=== PATIENT | male | born 1990 | race Caucasian/White ===

== ENCOUNTER 2018-09-28 10:52 | Emergency (ER) | payer OTHER ==
--- NOTE | 2018-09-28 11:59 | UC ---
Throat Pain/Nasal Alex HPI - HPI Summary HPI Summary: 28 y/o male presents to the urgent care c/o sore throat, white tongue the past 3 days. He states Hx of oral thrush about 7 years ago. He has mild dry cough. Pain w/ swallowing is mild now 4/10, but he recently took Ibuprofen PO which seems to improve his symptoms. Pt denies fever, PRASAD, URI, SOB, chest pain, abdominal pain, N/V/D. - History of Current Complaint Chief Complaint: UCGeneralIllness Stated Complaint: SORE THROAT SORES IN MOUTH Time Seen by Provider: 09/28/18 11:57 Hx Obtained From: Patient Onset/Duration: Gradual Onset, Still Present Severity: Moderate Pain Intensity: 4 Pain Scale Used: 0-10 Numeric Cough: None Associated Signs & Symptoms: Positive: Dysphagia. Negative: Fever - Epiglottits Risk Factors Epiglottis Risk Factors: Negative - Allergies/Home Medications Allergies/Adverse Reactions: Allergies Allergy/AdvReac Type Severity Reaction Status Date / Time No Known Allergies Allergy Verified 09/28/18 11:18 Home Medications: Home Medications Venlafaxine EXT RELEASE CAP* [Effexor Xr CAP*] 75 mg PO DAILY 09/28/18 [History Confirmed 09/28/18] PMH/Surg Hx/FS Hx/Imm Hx Previously Healthy: Yes - Pt denies PMHX - Surgical History Surgical History: None - Family History Known Family History: Positive: None - Pt denies FMHX - Social History Occupation: Employed Full-time Lives: With Family Alcohol Use: Occasionally Substance Use Type: Marijuana Smoking Status (MU): Never Smoked Tobacco Review of Systems All Other Systems Reviewed And Are Negative: Yes Constitutional: Positive: Negative Skin: Positive: Negative Eyes: Positive: Negative ENT: Positive: Sore Throat, Other - white tongue and one mouth ulcer Respiratory: Positive: Negative Cardiovascular: Positive: Negative Gastrointestinal: Positive: Negative Genitourinary: Positive: Negative Motor: Positive: Negative Neurovascular: Positive: Negative Musculoskeletal: Positive: Negative Neurological: Positive: Negative Psychological: Positive: Negative Is Patient Immunocompromised?: No Physical Exam - Summary Physical Exam Summary: VITAL SIGNS: Reviewed. GENERAL: Patient is a well developed and nourished male who is sitting comfortable in the examining table. Patient is not in any acute respiratory distress. HEAD AND FACE: No signs of trauma. No ecchymosis, hematomas or skull depressions. No sinus tenderness. EYES: PERRLA, EOMI x 2, No injected conjunctiva, no nystagmus. No photophobia. EARS: Hearing grossly intact. Ear canals and tympanic membranes are within normal limits. MOUTH: Positive pharynx with erythema, exudates, palatal petechiae. B/L tonsillar enlargement with exudate. Uvula in midline. Tongue w/ creamy white plaques fairly adherant to oral mucosa NECK: Supple, trachea is midline, Positive anterior cervical lymphadenopathy, no JVD, no carotid bruit, no c-spine tenderness, neck with full ROM. No meningeal signs, no Kernig's or brudzinskis signs. CHEST: Symmetric, no tenderness at palpation LUNGS: Clear to auscultation bilaterally. No wheezing or crackles. CVS: Regular rate and rhythm, S1 and S2 present, no murmurs or gallops appreciated. ABDOMEN: Soft, non-tender. No signs of distention. No rebound no guarding, and no masses palpated. Bowel sounds are normal. EXTREMITIES: FROM in all major joints, no edema, no cyanosis or clubbing. NEURO: Alert and oriented x 3. No acute neurological deficits. Speech is normal and follows commands. SKIN: Dry and warm Triage Information Reviewed: Yes Vital Signs: Initial Vital Signs Temp 98.4 F 09/28/18 11:12 Pulse 92 09/28/18 11:12 Resp 18 09/28/18 11:12 BP 129/85 09/28/18 11:12 Pulse Ox 100 09/28/18 11:12 Throat Pain/Nasal Course/Dx - Course Course Of Treatment: 28 y/o male presents to the urgent care c/o sore throat, white tongue the past 3 days. He states Hx of oral thrush about 7 years ago. He has mild dry cough. Pain w/ swallowing is mild now 4/10, but he recently took Ibuprofen PO which seems to improve his symptoms. Pt denies fever, PRASAD, URI, SOB, chest pain, abdominal pain, N/V/D. Hx obtained. Pt w/ oral candidiasis on examination. Rapid Strep: negative. Pt Rx Nystatin PO and Chlorhexidine Mouthwash to alleviate symptoms. Pt advised to f/u w/ PCP in 3 days if not improvement of symptoms. D/C instructions explained. Pt understood and agreed w/ plan of care. - Differential Dx/Diagnosis Differential Diagnosis/HQI/PQRI: Laryngitis, Mononucleosis, Pharyngitis, Tonsillitis, URI, Other - oralt thrush Provider Diagnosis: Oral thrush Discharge - Sign-Out/Discharge Documenting (check all that apply): Patient Departure - d/c home All imaging exams completed and their final reports reviewed: No Studies - Discharge Plan Condition: Stable Disposition: HOME Prescriptions: Chlorhexidine MOUTHWASH 0.12%* [Peridex Mouth Wash 0.12%*] 15 ml .SEE ORDER BID #1 oral.soln Nystatin SUSPENSION ORAL SYR* 100,000 units PO QID #1 bottle Patient Education Materials: Oral Candidiasis (ED) Referrals: Franck Canela DO [Primary Care Provider] - 3 Days Additional Instructions: 1- Please take Nystatin PO as directed and chlorhesidine mouth wash PO to alleviate symptoms. 2-Continue taking ibuprofen PO q6-8hrs prn as instructed after meals to alleviate pain and swelling. Increase fluid intake, eat well, rest and avoid strenuous exercise 3-If symptoms do not improve or worsen please return to the urgent care or f/u with your PCP in 3 days for further evaluation and treatment. - Billing Disposition and Condition Condition: STABLE Disposition: Home
== END 2018-09-28 12:34 | disposition home or self-care (01) ==
LOC: UCEAST 10:52
DX: B37.0 Candidal stomatitis (principal); J02.9 Acute pharyngitis, unspecified; R05 Cough
CPT/HCPCS: 87651; 99202; G0463